=== PATIENT | female | born 1970 | race Caucasian/White ===

== ENCOUNTER → 2016-10-10 | Outpatient (CLI) | payer BC ==
--- NOTE | 2016-10-10 12:04 | KCIC ---
Bilateral digital screening mammograms with CAD: HISTORY Routine screening COMPARISON Comparison is made to previous examinations dated 09/09/2015 and 09/01/2014. FINDINGS Breast density category C. The skin and nipples show no abnormalities. No abnormal lymph nodes are seen in the axilla. The breast parenchyma shows heterogeneous density. There continue to be small circumscribed lesions in the left breast correspond to cysts seen on previous ultrasound. There are no new dominant masses, suspicious calcifications or architectural distortions. IMPRESSION No evidence of malignancy. Recommend routine annual mammographic screening. This study was interpreted with the benefit of Computerized Aided Detection (CAD). Mammography is not 100% sensitive in detecting breast cancer. Therefore, a self breast exam and a clinical breast exam are very important. A negative mammogram does not negate a clinically suspicious finding and should not result in a delay in biopsying a clinically suspicious abnormality. BI-RADS category 2: Benign. This patient's information has been entered into a reminder system for the patient to be notified with the results of this examination and a target date for her next mammograms. Electronically signed by: Vonnie Montemayor MD (Oct 10, 2016 12:02:06)
== END | disposition home or self-care (01) ==
LOC: KCIC MAMMO 08:09
PROVIDERS: ATTEND Obstetrics & Gynecology
DX: Z12.31 Encounter for screening mammogram for malignant neoplasm of breast (principal)
CPT/HCPCS: 77052; G0202; 77067

== ENCOUNTER 2017-03-29 07:55 | Observation (INO) | payer BC ==
[~2017-03-29] VITALS: Ht 160 cm; Wt 56.7 kg
[2017-03-29] VITALS (9 sets, daily range): BP systolic 98–130; BP diastolic 56–81
[~2017-03-29 07:55] MED LIST: HYDROmorphone 2 MG/ML VIAL IV PRN; IV RINGERS,LACTATED 1000ML 1,000 ML IV SCH; LIDOCAINE 1% 1 ML SYRINGE. ID PRN; MORPHINE SULFATE 2 MG/ML DISP.SYRIN. IV PRN; ONDANSETRON PF 4 MG/2 ML VIAL. IV PRN; PROCHLORPERAZINE 10 MG/2 ML VIAL. IV PRN; fentaNYL PF VIAL 100 MCG/2 ML VIAL IV PRN
[2017-03-29] MEDS ORDERED: ESTROGENS, CONJ VAGINAL CREAM 30GM TUBE. ONE (08:05)
[2017-03-29] MEDS ORDERED: BUPIVACAINE-EPI 0.25%-1:200000 MPF 30 ML VIAL. ONE (08:05)
[2017-03-29] MEDS ORDERED: ALPR0.254 PO (08:14)
[2017-03-29] MEDS ORDERED: PARO10TA57 PO (08:15)
[2017-03-29] MEDS ORDERED: OMEP20TA63 PO (08:15)
[2017-03-29] MEDS ORDERED: DICY20TA3 PO (08:16)
[2017-03-29 08:19] LABS: NEG OBC UR NEG; POS OBC UR POS
[2017-03-29] MEDS ORDERED: PROPOFOL 20 ML IV ONE (08:56)
[2017-03-29] MEDS ORDERED: LIDOCAINE 2% PF Vial for OR 5 ML VIAL. ONE (08:56)
[2017-03-29] MEDS ORDERED: MIDAZOLAM HCL/PF 2 MG/2 ML VIAL. ONE (08:56)
[2017-03-29] MEDS ORDERED: ROCURONIUM 50 MG/5 ML VIAL. ONE (08:56)
[2017-03-29] MEDS ORDERED: DEXAMETHASONE SOD PHOS 20 MG/5 ML VIAL. ONE (08:56)
[2017-03-29] MEDS ORDERED: ONDANSETRON PF 4 MG/2 ML VIAL. ONE (08:56)
[2017-03-29] MEDS ORDERED: fentaNYL PF VIAL 100 MCG/2 ML VIAL ONE (08:56)
[2017-03-29] MEDS ORDERED: KETOROLAC 60 MG/2 ML INJ FOR OR. ONE (10:34)
[2017-03-29] MEDS ORDERED: GLYCOPYRROLATE 1 MG/5 ML VIAL. ONE (10:34)
[2017-03-29] MEDS ORDERED: NEOSTIGMINE METHYLSULFATE 5 MG/5 ML SYRINGE. ONE (10:34)
[2017-03-29] MEDS ORDERED: SEVOFLURANE 61 TO 120 MINUTES. IH ONE (10:35)
[2017-03-29] MEDS ORDERED: PHENYLEPHRINE in 0.9% NACL PF 1 MG/10 ML DISP.SYRIN. IV ONE (10:35)
--- NOTE | 2017-03-29 10:59 | PDOC ---
BRIEF OPERATIVE NOTE Date: Mar 29, 2017 Pre-Op Diagnosis fibroids, menorrhagia, history of anemia Post-Op Diagnosis same Procedure Performed LAVH, bilateral salpingectomy Surgeon Dr. Zeina Isaacs Pediatric Physician Dr. Elvie Todd Anesthesiologist Dr. Kinney Anesthesia Type: General Blood Loss 75cc IV Fluid 1L Urine Output 150cc clear via weller Specimens Obtained cervix, uterus, bilateral tubes Findings enlarged RV uterus, normal bilateral tubes and ovaries, no significant pelvic adhesive disease Complications none Additional Remarks dictation line down ZEINA ISAACS MD Mar 29, 2017 10:59
[2017-03-29] MEDS ORDERED: diphenhydrAMINE HCL 25 MG CAPSULE PO PRN (11:00)
[2017-03-29] MEDS ORDERED: LACTULOSE 20 GM/30 ML SOLUTION. PO PRN (11:00)
[2017-03-29] MEDS ORDERED: ZOLPIDEM 5 MG TABLET. PO PRN (11:00)
[2017-03-29] MEDS ORDERED: CALCIUM CARBONATE 500 MG TAB.CHEW PO PRN (11:00)
[2017-03-29] MEDS ORDERED: HYDROcodone/APAP 5/325MG 1 TAB TABLET PO PRN (11:00)
[2017-03-29] MEDS ORDERED: diphenhydrAMINE 50 MG/ML VIAL IV PRN (11:00)
[2017-03-29] MEDS ORDERED: MAG HYDROX/ALUMINUM HYD/SIMETH 30 ML ORAL.SUSP PO PRN (11:00)
[2017-03-29] MEDS ORDERED: NALOXONE 0.4 MG/ML VIAL. IV PRN (11:00)
[2017-03-29] MEDS ORDERED: MAGNESIUM HYDROXIDE 2,400 MG/30 ML ORAL.SUSP. PO PRN (11:00)
[2017-03-29] MEDS ORDERED: MORPHINE SULFATE 2 MG/ML DISP.SYRIN. IV PRN (11:00)
[2017-03-29] MEDS ORDERED: 0.9 % SODIUM CHLORIDE 10 ML DISP.SYRIN. IV PRN (11:00)
[2017-03-29] MEDS ORDERED: ONDANSETRON PF 4 MG/2 ML VIAL. IV PRN (11:00)
[2017-03-29] MEDS: fentaNYL PF VIAL 100 MCG/2 ML VIAL IV PRN ×3 (11:25→12:02)
[2017-03-29] MEDS ORDERED: MEPERIDINE PF 25 MG/ML VIAL. IM PRN (12:30)
[2017-03-29] MEDS: KETOROLAC TROMETHAMINE 30 MG/ML INJ. IV PRN ×2 (13:38→21:49)
[2017-03-29] MEDS: oxyCODONE/APAP 5/325 1 TAB TABLET PO PRN (16:21)
[2017-03-29] MEDS ORDERED: SMZ/TMP 800/160MG TABLET. PO SCH (21:00)
[2017-03-29] MEDS: SIMETHICONE 80 MG TAB.CHEW PO PRN (21:49)
[2017-03-30 03:18] VITALS: BP 104/68
[2017-03-30] MEDS: oxyCODONE/APAP 5/325 1 TAB TABLET PO PRN ×3 (03:22→12:19)
[2017-03-30 05:09] LABS: CALCIUM 8.7 mg/dL (8.5-10.1); CREATININE 0.7 mg/dL (0.6-1.0); GFR 90.9; POTASSIUM 3.6 mmol/L (3.5-5.1)
[2017-03-30 08:00] VITALS: BP 110/72
--- NOTE | 2017-03-30 08:45 | PDOC ---
SURGICAL PROGRESS NOTE Subjective Doing well without complaints. Got sick last night but ok this am and tolerating breakfast. Voiding without catheter and wants to go home Vital Signs Vital Signs Date Time Temp Pulse Resp B/P (MAP) Pulse Ox O2 Delivery O2 Flow Rate FiO2 03/30/17 04:30 16 97 Room Air 03/30/17 03:22 96.0 03/30/17 03:18 99.1 80 104/68 (80) 99.1 I&O Intake and Output 03/30/17 07:00 Intake Total 3350 ml Output Total 1425 ml Balance 1925 ml Intake Oral 1000 ml IV Total 1350 ml Other 1000 ml Output Urine Total 1350 ml Estimated Blood Loss 75 ml PATIENT HAS A RODRÍGUEZ: No General: Alert, Oriented X3, Cooperative, No acute distress Heart: Regular rate Abdomen: Soft, No tenderness, Other (all port sites c/d/i) Extremities: No clubbing, No cyanosis, No edema Skin: No rashes, No breakdown Neuro: Normal speech Psych/Mental Status: Mental status NL, Mood NL Labs Laboratory Tests Test 03/29/17 08:00 03/30/17 04:25 Urine Test Negative (NEG) Hematocrit 31.6 % (36.0-47.0) Sodium Level 139 mmol/L (136-145) Potassium Level 3.6 mmol/L (3.5-5.1) Chloride Level 105 mmol/L (98-107) Carbon Dioxide Level 29 mmol/L (21-32) Anion Gap 5 (6-14) Blood Urea Nitrogen 5 mg/dL (7-20) Creatinine 0.7 mg/dL (0.6-1.0) Estimated GFR (Cockcroft-Gault) 90.9 Glucose Level 108 mg/dL (70-99) Calcium Level 8.7 mg/dL (8.5-10.1) Laboratory Tests Test 03/30/17 04:25 Hematocrit 31.6 % (36.0-47.0) Sodium Level 139 mmol/L (136-145) Potassium Level 3.6 mmol/L (3.5-5.1) Chloride Level 105 mmol/L (98-107) Carbon Dioxide Level 29 mmol/L (21-32) Anion Gap 5 (6-14) Blood Urea Nitrogen 5 mg/dL (7-20) Creatinine 0.7 mg/dL (0.6-1.0) Estimated GFR (Cockcroft-Gault) 90.9 Glucose Level 108 mg/dL (70-99) Calcium Level 8.7 mg/dL (8.5-10.1) I have reviewed the following labs, vitals, nursing Cardiovascular: No pertinent hx Pulmonary: No pertinent hx GI: No pertinent hx Heme/Onc: No pertinent hx Psych: No pertinent hx Rheumatologic: No pertinent hx Infectious disease: No pertinent hx ENT: No pertinent hx Assessment/Plan POD#1 s/p LAVH bilateral salpingectomy Routine PO care d/c to home later today NPV x 6 weeks light/limited activity x [address] while on narcotic pain pills keep scheduled follow up in one week pain pills already filled at home ok to take otc ibuprofen as well call or return sooner for any other questions or concerns not limited to but including pain unrelieved with pain pills, increased or unexplained vaginal bleeding, or T>100.4 Problems: RAHEL MEDLEY MD Mar 30, 2017 08:45
--- NOTE | 2017-03-30 08:57 | PDOC3 ---
Discharge Summary Visit Information Date of Admission: Mar 29, 2017 Date of Discharge: Mar 30, 2017 Admitting Diagnosis Comment: fibroids, menorrhagia Final Diagnosis same Brief Hospital Course Allergies Allergies Coded Allergies Type Severity Reaction Last Updated Verified Sulfa (Sulfonamide Antibiotics) Allergy Intermediate 03/29/17 No Vital Signs Vital Signs Date Time Temp Pulse Resp B/P (MAP) Pulse Ox O2 Delivery O2 Flow Rate FiO2 03/30/17 04:30 16 97 Room Air 03/30/17 03:22 96.0 03/30/17 03:18 99.1 80 104/68 (80) 99.1 Lab Results Laboratory Tests Test 03/29/17 08:00 03/30/17 04:25 Urine Test Negative (NEG) Hematocrit 31.6 % (36.0-47.0) Sodium Level 139 mmol/L (136-145) Potassium Level 3.6 mmol/L (3.5-5.1) Chloride Level 105 mmol/L (98-107) Carbon Dioxide Level 29 mmol/L (21-32) Anion Gap 5 (6-14) Blood Urea Nitrogen 5 mg/dL (7-20) Creatinine 0.7 mg/dL (0.6-1.0) Estimated GFR (Cockcroft-Gault) 90.9 Glucose Level 108 mg/dL (70-99) Calcium Level 8.7 mg/dL (8.5-10.1) Laboratory Tests Test 03/30/17 04:25 Hematocrit 31.6 % (36.0-47.0) Sodium Level 139 mmol/L (136-145) Potassium Level 3.6 mmol/L (3.5-5.1) Chloride Level 105 mmol/L (98-107) Carbon Dioxide Level 29 mmol/L (21-32) Anion Gap 5 (6-14) Blood Urea Nitrogen 5 mg/dL (7-20) Creatinine 0.7 mg/dL (0.6-1.0) Estimated GFR (Cockcroft-Gault) 90.9 Glucose Level 108 mg/dL (70-99) Calcium Level 8.7 mg/dL (8.5-10.1) Brief Hospital Course Ms. Charles is a 46 old female who presented with menorrhagia, fibroids and anemia. She underwent an LAVH with bilateral salpingectomy without complications yesterday. She has had an unremarkable postoperative course. She is voiding well without catheter, ambulating well and tolerating regular diet. She will be discharged home later today Discharge Information Condition at Discharge: Improved Follow Up: Weeks Disposition/Orders: D/C to Home Scheduled Alprazolam (Alprazolam), 1 TAB PO BID, (Reported) Dicyclomine Hcl (Dicyclomine Hcl), 1 TAB PO BID, (Reported) Omeprazole Magnesium (Prilosec Otc), 20 MG PO DAILY, (Reported) Paroxetine Hcl (Paxil), 5 MG PO DAILY, (Reported) Patient Instructions Patient Instructions POD#1 s/p LAVH bilateral salpingectomy Routine PO care d/c to home later today NPV x 6 weeks light/limited activity x [address] while on narcotic pain pills keep scheduled follow up in one week pain pills already filled at home ok to take otc ibuprofen as well call or return sooner for any other questions or concerns not limited to but including pain unrelieved with pain pills, increased or unexplained vaginal bleeding, or T>100.4 RAHEL MEDLEY MD Mar 30, 2017 08:56
[2017-03-30 09:45] VITALS: BP 112/72
[2017-03-30] MEDS: SIMETHICONE 80 MG TAB.CHEW PO PRN (09:48)
[2017-03-30 13:30] VITALS: BP 123/81
--- NOTE | 2017-04-02 08:41 | PATHOLOGY ---
PATHOLOGY REPORT * * * * * * * * FINAL DIAGNOSIS: Uterus and attached bilateral fallopian tubes, laparoscopic assisted vaginal hysterectomy with bilateral salpingectomy: - Leiomyoma, uterine corpus, submucosal and intramural, measuring 4.6 cm in greatest dimension and showing focal infarction and hyalinization (uterine weight 228 grams). - Chronic cervicitis with focal squamous metaplasia. - Nabothian cyst, cervix. - Slightly disordered proliferative endometrium. - Paratubal cysts, bilateral. COMMENT: There is no evidence of malignancy. (JPM/db; 03/31/2017) REPORT ELECTRONICALLY SIGNED BY: Alvarez Hale M.D. DATE/TIME: 04/02/2017 08:40 * * * * * * * * GROSS PATHOLOGY: The specimen is received in formalin labeled "Iqra Charles, uterus and cervix, bilateral tubes". Received is a 10.3 x 7.4 x 5.8 cm intact uterus with attached cervix and bilateral fallopian tubes that weighs 228.4g. The uterine serosa is pale yellow clayton and focally nodular. The 1.3 cm rounded cervical os is surrounded by pale yellow clayton, somewhat granular ectocervical mucosa. The uterus is oriented using the peritoneal reflection and the anterior paracervical margin is inked black. The uterus is opened laterally to reveal a yellow clayton, corrugated endocervical canal measuring 3.0 cm in length. The endometrial cavity is distorted by a large submucosal fibroid measuring 4.6 cm in diameter. The endometrial cavity measures approximately 5.5 cm in length by 3.5 cm in width. The endometrium is reddish clayton and granular in appearance and measures 0.3 in thickness. Serial sectioning reveals a pink clayton, soft, trabeculated myometrium measuring 2.0 cm in thickness. The fibroid has a polo to white, whorled, rubbery cut surface. The right fimbriated fallopian tube measures 5.3 cm in length by 0.6 cm in diameter. The serosal surface is inked black. There is a 0.8 clear, thin paratubal cyst. Sectioning reveals a pinpoint lumen and an unremarkable cut surface. The left fimbriated fallopian tube measures 6.7 cm in length by 0.7 cm in diameter. There is a 1.2 cm clear, thin paratubal cyst. Sectioning reveals a pinpoint lumen and an unremarkable cut surface. Rehabilitation Aide/Scheduler sections are submitted as follows: A1- Anterior and posterior cervix A2-A3- Anterior endomyometrium and submucosal fibroid A4- Posterior endomyometrium A5-A6- Rehabilitation Aide/Scheduler sections from large fibroid A7- Rehabilitation Aide/Scheduler sections from bilateral fallopian tubes, right tube differentially inked (JPM;l 03/29/17) INITIAL CPT CODE(S): A; 02039 Professional services [place] [facility] [place] [address] Technical services performed by [facility] at [address] [place] [address], [address], [place] [address]. SPECIMEN(S) RECEIVED: A.Uterus, cervix, bilateral fallopian tubes CLINICAL HISTORY: Iron deficiency anemia, fibroids, menorrhagia PATIENT: KELLYIQRA /AGE: 906/25/1970 (Age: 46) PATIENT #: [id number] ALT CASE #: SPECIMEN COLLECTION DATE: 03/29/2017 SPECIMEN RECEIVED DATE: 03/29/2017 [facility] - [address] [place] [address] - PHONE: [phone] * * * END OF REPORT * * *
--- NOTE | 2017-04-26 12:37 | OP ---
DATE OF SURGERY: 03/29/2017 The patient was admitted to undergo a laparoscopic-assisted vaginal hysterectomy, bilateral salpingo-oophorectomy. She underwent the aforementioned procedure without complications. SURGEON: Rahel Isaacs MD WANT AD RECEIVER: Elvie Todd MD ANESTHESIA: General. PROCEDURE: Laparoscopic-assisted vaginal hysterectomy, bilateral salpingectomy. FINDINGS: Mildly enlarged uterus, normal bilateral tubes, normal ovaries. COMPLICATIONS: None. DESCRIPTION OF THE PROCEDURE: The patient was taken to the operating room where general anesthesia was placed. The patient was placed in the dorsal lithotomy position in [facility]. The patient's abdomen and vagina were prepped and draped in the normal sterile fashion and a Burgos catheter was inserted under sterile technique. After performing a timeout, a bivalve speculum was placed in the patient's vagina. A single tooth tenaculum was used to grasp the anterior lip of the cervix. 10 mL of 0.25% Marcaine with epinephrine was used to circumferentially inject around the cervix. This was for both hemodissection and hemostatic purposes later. After this was done, the ShipEarly uterine manipulator was placed through the endocervical os, locked on the single tooth tenaculum and the bivalve speculum was then removed. Top gloves were discarded and changed. Attention was then turned to the abdomen where a small infraumbilical skin incision was made with the scalpel, carried down to the underlying layer to the fascia with a curved Abril clamp. The 5 mm Visiport was used to directly enter the abdominal cavity. Opening patient pressure was 3 mmHg. Carbon dioxide gas was used to then appropriately insufflate the abdominal cavity to maintain a pressure of 15 mmHg. The patient was placed in Trendelenburg position. Right and left lower quadrant ports were placed under direct visualization without difficulty, 5 mm Ethicon disposable ports. After transilluminating the abdomen and finding an area clear of any vasculature they were placed. At this point, the LigaSure Advance was used to cauterize and cut the left round ligament, creating a window in the mesosalpinx, going down and creating the bladder flap sharply, elevating the left tube again leaving the ovary, cauterizing the mesosalpinx area and then crossing the uterine ovarian pedicle leaving the ovary. This was done exactly the same on the patient's right side, first starting at the round ligament, cauterizing and cutting it with the LigaSure Advance, creating that window, going down and further meeting that bladder flap anteriorly. Again, elevating the right tube, crossing under the tube above the ovary in the mesosalpinx and then crossing the right uterine ovarian pedicle again leaving the ovary. Once this was done, the uterine vessels were obtained on both sides going down contralaterally and crossing and staying vertical and hugging the uterus through the cardinal and broad ligaments down to the uterosacrals, making sure the bladder was down the whole time. Once this was done, the uterus was blanched. All instruments were removed and attention was turned vaginally. The single tooth and Valtchev were removed. A weighted speculum was placed in the patient's vagina. Thyroid Rosalee clamps were placed on the anterior and posterior lips of the cervix respectively. A scalpel was used to make a circumferential incision in the cervix. An open Ray-Mark 4 x 4 was used to gently push up the anterior bladder peritoneum. The posterior cul-de-sac was sharply entered with the Joseph scissors. A #0 Vicryl stitch was used to secure the posterior peritoneum to the vaginal cuff here. The short weighted speculum was removed and replaced with the long weighted Sandra speculum. That posterior cuff tag was tagged with a curved Abril clamp and the needle was cut and passed off. Once this was done, curved Autumn x 2 were placed on the patient's left uterosacral ligament. They were doubly clamped with curved Autumn's, cut with the Joseph scissors and suture ligated x 2 with #0 Vicryl. The second one was taken through the vaginal cuff securing the uterosacral ligaments of the vaginal cuff, tying it and tagging it with a straight Abril clamp and passing the needle off. This was done exactly the same on the patient's right side, first starting on the left then the right. Double clamping the right uterosacrals with curved Heaneys, cutting with Joseph scissors and suture ligating x 2 with #0 Vicryl, again taking the second one through the vaginal cuff and tagging it with a straight Abril clamp. The remainder of the pedicle was delineated with a curved right angle clamp and the vaginal LigaSure Max was used to cauterize the remaining pedicles on both sides. Once it was free, the cervix, uterus, bilateral tubes were passed off for permanent pathology. A sponge stick was used to examine the pedicles. The Ray-Mark was taken out of the anterior cul-de-sac and the anterior bladder peritoneum was grasped with a long Allis. 2-0 Vicryl was taken through the anterior bladder peritoneum, right uterosacral ligament, posterior peritoneum and left uterosacral ligament, thus closing the peritoneum in a pursestring like fashion. The long weighted Sandra was taken out on that step and replaced with a short weighted vaginal speculum. The cuff was closed in an anterior to posterior running locked fashion with 2-0 Vicryl. Once this was done and it was hemostatic, all instruments were removed from the vagina and all gloves were discarded and changed. Attention was turned back above for a second look where she was irrigated and Tisseel was placed over the cuff with excellent results and hemostasis. The right and left lower quadrant ports were removed under direct visualization, these too were hemostatic. Gas was released from the umbilical port. All three port sites were closed with 4-0 nylon at the level of the skin and injected with a total of 10 mL of 0.25% Marcaine with epinephrine. RAHEL ISAACS MD DR: EMIL/apoorva JOB#: [id number] / [id number]
== END 2017-03-30 13:35 | disposition home or self-care (01) ==
LOC: SURG 07:55 → 3 NORTH 11:15
PROVIDERS: ADMIT Obstetrics & Gynecology; ATTEND Obstetrics & Gynecology
DX: N92.0 Excessive and frequent menstruation with regular cycle (principal); D25.9 Leiomyoma of uterus, unspecified; D64.9 Anemia, unspecified
CPT/HCPCS: 36415; 58552; 80048; 81025; 85014; 86850; 86900; 86901; 88307; 96374; 96375; 96376; C1769; G0378; G0379; J0690; J1100; J1885; J2001; J2250; J2370; J2405; J2704; J2710; J3010; J3490; J7030; J7120; J0780

== ENCOUNTER → 2017-10-23 | Outpatient (CLI) | payer BC | END | disposition home or self-care (01) | LOC: KCIC MAMMO 08:05 | DX: Z12.31 Encounter for screening mammogram for malignant neoplasm of breast (principal) | CPT/HCPCS: 77063; 77067 ==

== ENCOUNTER → 2017-10-29 | Outpatient (CLI) | payer BC | END | disposition home or self-care (01) | LOC: KCIC US 12:52 | DX: N63.20 Unspecified lump in the left breast, unspecified quadrant (principal) | CPT/HCPCS: 76641 ==

== ENCOUNTER → 2018-10-29 | Outpatient (CLI) | payer BC ==
[~2018-10-29] MED LIST changes: +ALPR0.254 PO; +DICY20TA3 PO; -HYDROmorphone 2 MG/ML VIAL IV PRN; -IV RINGERS,LACTATED 1000ML 1,000 ML IV SCH; -LIDOCAINE 1% 1 ML SYRINGE. ID PRN; -MORPHINE SULFATE 2 MG/ML DISP.SYRIN. IV PRN; +OMEP20TA63 PO; -ONDANSETRON PF 4 MG/2 ML VIAL. IV PRN; +PARO10TA57 PO; -PROCHLORPERAZINE 10 MG/2 ML VIAL. IV PRN; -fentaNYL PF VIAL 100 MCG/2 ML VIAL IV PRN
--- NOTE | 2018-10-29 13:18 | KCIC ---
Bilateral digital screening mammograms with 3-D tomosynthesis: Reason for examination: Routine screening. Comparison is made to previous studies dated 10/23/2017 and 10/10/2016. Bilateral mammograms in CC and oblique projections were obtained with 2-D imaging and 3-D tomosynthesis imaging on a Siemens Inspiration unit and reviewed on the workstation. Interpretation was made with the benefit of CAD. The skin and nipples show no abnormalities. No abnormal axillary lymph nodes are seen. The breast parenchyma is heterogeneously dense. (Breast density: Category C.) There are multiple circumscribed lesions bilaterally consistent with patient's history of cysts. The largest lesion in the right breast posterior laterally has decreased in size. There has been increase in size in the lesions at the 2:00 B position and 8:00 B positions of the left breast. There are no suspicious calcifications or architectural distortion. Impression: Continued presence of multiple circumscribed lesions bilaterally consistent with patient's history of cysts with some improvement in the cysts in the right breast but enlarging cysts in the left breast. Your patient's mammogram demonstrates that she has dense breast tissue (breast density category C or D), which could hide abnormalities, and if she has other risk factors for breast cancer that have been identified, she might benefit from supplemental screening tests that may be suggested by you as her ordering physician. Dense breast tissue, in and of itself, is a relatively common condition. Therefore, this information is not provided to cause undue concern, but rather to raise your awareness and to promote discussion with your patient regarding the presence of other risk factors, in addition to dense breast tissue. Your patient's mammography results will be sent to her. BI-RAD Category 2: Benign. "Our facility is accredited by the [employer] Mammography Program." This patient's information has been entered into a reminder system for the patient to be notified with the results of her examination and a target date for the next mammogram. Electronically signed by: Whit Montemayor MD (10/29/2018 1:13 PM) [id number]
== END | disposition home or self-care (01) ==
LOC: KCIC MAMMO 08:19
PROVIDERS: ATTEND Obstetrics & Gynecology
DX: Z12.31 Encounter for screening mammogram for malignant neoplasm of breast (principal)
CPT/HCPCS: 77063; 77067

== ENCOUNTER → 2019-11-03 | Outpatient (CLI) | payer OTHER ==
--- NOTE | 2019-11-03 16:55 | KCIC ---
Bilateral digital screening mammograms with 3-D tomosynthesis: Reason for examination: Routine screening. Comparison is made to previous studies dated back to 10/10/2016. Bilateral mammograms in CC and oblique projections were obtained with 2-D imaging and 3-D tomosynthesis imaging on a Siemens Inspiration unit and reviewed on the workstation. Interpretation was made with the benefit of CAD. The skin and nipples show no abnormalities. No abnormal axillary lymph nodes are seen. The breast parenchyma is heterogeneously dense. (Breast density: Category C.) There continue to be small circumscribed lesions bilaterally which probably represent cysts in this patient with history of cysts. There is one nodular density however at the posterior central left breast on cc view probably at the 6:00 C position which is denser than the others. This likely represents a cyst but recommend further evaluation with ultrasound. Impression: Continued presence of circumscribed lesions consistent with patient's history of cysts. There is one lesion present posterior centrally in the left breast on cc view probably at the 6:00 C position which appears to be denser than the others. Recommend further evaluation with ultrasound. Your patient's mammogram demonstrates that she has dense breast tissue (breast density category C or D), which could hide abnormalities, and if she has other risk factors for breast cancer that have been identified, she might benefit from supplemental screening tests that may be suggested by you as her ordering physician. Dense breast tissue, in and of itself, is a relatively common condition. Therefore, this information is not provided to cause undue concern, but rather to raise your awareness and to promote discussion with your patient regarding the presence of other risk factors, in addition to dense breast tissue. Your patient's mammography results will be sent to her. BI-RAD Category 0: Incomplete. Needs additional imaging evaluation. "Our facility is accredited by the [employer] Mammography [employer]." This patient's information has been entered into a reminder system for the patient to be notified with the results of her examination and a target date for the next mammogram. Electronically signed by: Whit Montemayor MD (11/03/2019 4:52 PM) [email or web address]
== END | disposition home or self-care (01) ==
LOC: KCIC MAMMO 15:53
PROVIDERS: ATTEND Obstetrics & Gynecology
DX: Z12.31 Encounter for screening mammogram for malignant neoplasm of breast (principal); N64.89 Other specified disorders of breast
CPT/HCPCS: 77063; 77067

== ENCOUNTER → 2019-11-07 | Outpatient (CLI) | payer OTHER ==
--- NOTE | 2019-11-07 16:19 | KCIC ---
Left breast ultrasound: Reason for examination: Nodular density on screening mammogram. Comparison is made to mammographic exam dated 11/03/2019. Ultrasound examination of the left breast and axilla was performed. In the 6:00 position 3 cm from the nipple and corresponding to the area of mammographic concern, there is an anechoic circumscribed lesion consistent with a cyst measuring 1 cm in greatest dimension. There are also a couple of small fibrocystic type lesions measuring 3.4 and 4.3 mm in size at the 4:00 position 6 cm from the nipple. No suspicious-appearing nodules are seen. No abnormal appearing lymph nodes are seen in the axilla. IMPRESSION: 1 cm cyst appears to corresponding with the area of mammographic concern at the 6:00 position. Additional small fibrocystic type lesions at 4:00 position. Recommend 6 month follow-up with ultrasound. BI-RADS Category 3: Probably Benign. "Our facility is accredited by the [employer] Mammography Program." This patient's information has been entered into a reminder system for the patient to be notified with the results of her examination and a target date for the next mammogram. Electronically signed by: Whit Montemayor MD (11/07/2019 4:16 PM) [email or web address]
== END | disposition home or self-care (01) ==
LOC: KCIC US 07:48
PROVIDERS: ATTEND Obstetrics & Gynecology
DX: N60.12 Diffuse cystic mastopathy of left breast (principal)
CPT/HCPCS: 76641

== ENCOUNTER → 2020-05-18 | Outpatient (CLI) | payer OTHER ==
--- NOTE | 2020-05-18 10:02 | KCIC ---
Left breast ultrasound: Reason for examination: Follow-up nodules. Comparison is made to previous study dated 11/07/2019. Left breast ultrasound including evaluation of the retroareolar and axillary regions of the left breast was performed. There continue to be benign-appearing fibrocystic lesions at the 4:00 position 6 cm from the nipple measuring 3.4 mm in size, at the 6:00 position 3 cm from the nipple measuring 7.2 mm in size and at the 3:00 position 3 cm from the nipple measuring 4.1 mm in greatest dimension. These have shown interval decrease in size. No suspicious nodules are seen. No abnormal appearing lymph nodes are seen in the axilla. IMPRESSION: Continued presence of benign fibrocystic type lesions in the left breast which have shown interval decrease in size. Recommend routine mammographic follow-up. BI-RADS Category 2: Benign. "Our facility is accredited by the [employer] Mammography Program." This patient's information has been entered into a reminder system for the patient to be notified with the results of her examination and a target date for the next mammogram. Electronically signed by: Whit Montemayor MD (05/18/2020 9:59 AM) [email or web address]
== END | disposition home or self-care (01) ==
LOC: KCIC US 07:52
PROVIDERS: ATTEND Obstetrics & Gynecology
DX: R92.8 Other abnormal and inconclusive findings on diagnostic imaging of breast (principal); N63.23 Unspecified lump in the left breast, lower outer quadrant
CPT/HCPCS: 76641

== ENCOUNTER → 2020-11-30 | Outpatient (CLI) | payer OTHER ==
--- NOTE | 2020-11-30 16:38 | KCIC ---
Bilateral diagnostic digital mammograms with 3-D tomosynthesis: Reason for examination: Left breast lump with pain for one month. Comparison is made to previous studies dated back to 10/10/2016. Bilateral mammograms in CC and oblique projections were obtained with 2-D imaging and 3-D tomosynthes is imaging on a Siemens Inspiration unit and reviewed on the workstation. Interpretation was made wit h the benefit of CAD. The skin and nipples show no abnormalities. No abnormal axillary lymph nodes are seen. The breast par enchyma is heterogeneously dense. (Breast density: Category C.) There continue to be small nodular pa renchymal densities in the right breast which appear to be stable. In the left breast, there are smal l nodules at the 12:00 C and 1:00 B positions which are new. There are also small nodules in the left breast at the subareolar 12:00 position and at the 9:00 B position which are stable. In the area of clinical concern inferiorly, there appears to be a small crescent of nodularity seen posterior medial ly on cc view but no definite abnormality seen on oblique projection. No suspicious appearing calcifi cations are seen. Impression: Stable nodule were densities in the right breast. New nodules at the 12:00 C and 1:00 B positions of the left breast. Small crescent of density seen on cc view posterior medially in the area of clinical concern. Ultrasound to follow. Your patient's mammogram demonstrates that she has dense breast tissue (breast density category C or D), which could hide abnormalities, and if she has other risk factors for breast cancer that have bee n identified, she might benefit from supplemental screening tests that may be suggested by you as her ordering physician. Dense breast tissue, in and of itself, is a relatively common condition. Therefo re, this information is not provided to cause undue concern, but rather to raise your awareness and t o promote discussion with your patient regarding the presence of other risk factors, in addition to d ense breast tissue. Your patient's mammography results will be sent to her. BI-RAD Category 0: Incomplete. Needs additional imaging evaluation. Left breast ultrasound: Left whole breast ultrasound including evaluation of all 4 quadrants and the retroareolar and axillar y regions of the left breast was performed. In the area of clinical concern and at the 6:00 position 7 cm from the nipple, there is a 1.3 x 1 cm hypoechoic lesion with surrounding vascular flow and also showing tract to the skin surface. The appe arance would be consistent with a sebaceous cyst. At the 1:00 position 3 cm from the nipple, there is a hypoechoic circumscribed lesion in parallel orientation measuring 7 mm in size probably representi ng a complicated cyst. In the 12:00 position 4 cm from the nipple, there is a 2 x 1.8 cm simple cyst. No suspicious nodules are seen. No abnormal appearing lymph nodes are seen in the left axilla. IMPRESSION: Benign-appearing cystic lesions at the 1:00 and 12:00 positions. 1.3 x 1 cm hypoechoic lesion with a skin tract consistent with a sebaceous cyst at the 6:00 position 7 cm from the nipple and correspondi ng to the area of clinical concern. Recommend clinical follow-up as well as 6 month follow-up with pancho roper. BI-RADS Category 3: Probably Benign. "Our facility is accredited by the [employer] Mammography [employer]." This patient's information has been entered into a reminder system for the patient to be notified wit h the results of her examination and a target date for the next mammogram. Electronically signed by: Whit Montemayor MD (11/30/2020 4:36 PM) [facility]
== END ==
LOC: KCIC MAMMO 12:38
PROVIDERS: ATTEND Obstetrics & Gynecology
DX: N63.21 Unspecified lump in the left breast, upper outer quadrant (principal)
CPT/HCPCS: 76641; 77066; G0279; 77062

== ENCOUNTER → 2021-06-08 | Outpatient (CLI) | payer OTHER ==
--- NOTE | 2021-06-08 08:36 | KCIC ---
Procedure: TARGETED LEFT BREAST ULTRASOUND INDICATION: Follow-up of probably benign masses in the left breast. The patient had a sebaceous cyst o'clock position which has resolved. COMPARISON: Left breast ultrasound and mammogram from 11/30/2020. FINDINGS: Limited ultrasound was performed the previous areas of concern in the left breast. The left axilla wa s also evaluated. In the 12:00 position, 4 cm from the nipple, there is 0.7 cm cyst. It has decreased in size since the previous ultrasound. In the 1:00 position, 3 cm from the nipple, there is a 1.0 cm cyst with a few l ow-level internal echoes consistent with debris. It has increased slightly prior which time when it m easured 0.7 cm. The previously noted mass just deep to the skin in the 6:00 position, 7 cm from the n ipple, has resolved. There is no axillary adenopathy. IMPRESSION: Previously noted cyst in the 12:00 position of the left breast has decreased in size. Pre viously noted cyst in the 1:00 position left breast slightly larger. The sebaceous cyst noted in the 6:00 position of the left breast has resolved. ASSESSMENT: BI-RADS 2. Benign findings. RECOMMENDATION: Routine screening mammogram in November 2021. Electronically signed by: Helen Hurley MD (06/08/2021 8:34 AM) [email or web address]
== END ==
LOC: KCIC US 07:50
PROVIDERS: ATTEND Family Medicine
DX: N60.02 Solitary cyst of left breast (principal); N60.01 Solitary cyst of right breast
CPT/HCPCS: 76641

== ENCOUNTER → 2022-01-04 | Outpatient (CLI) | payer OTHER ==
[~2022-01-04] MED LIST changes: +DICY20TA PO; -DICY20TA3 PO
--- NOTE | 2022-01-04 12:18 | KCIC ---
Bilateral digital screening mammograms with 3-D tomosynthesis: Reason for examination: Routine screening. Comparison is made to previous studies dated back to 10/10/2016. Bilateral mammograms in CC and oblique projections were obtained with 2-D imaging and 3-D tomosynthes is imaging on a Siemens Inspiration unit and reviewed on the workstation. Interpretation was made cal moeller the benefit of CAD. The skin and nipples show no abnormalities. No abnormal axillary lymph nodes are seen. The breast par enchyma is extremely dense. (Breast density: Category D.) There continue to be small circumscribed no dules bilaterally. There are however new or enlarging nodules seen bilaterally. These may represent c ysts but further evaluation with ultrasound is recommended. There are no suspicious calcifications id entified. IMPRESSION: New and/or enlarging nodules seen bilaterally. Recommend further evaluation with bilateral breast ult rasound. Your patient's mammogram demonstrates that she has dense breast tissue (breast density category C or D), which could hide abnormalities, and if she has other risk factors for breast cancer that have bee n identified, she might benefit from supplemental screening tests that may be suggested by you as her ordering physician. Dense breast tissue, in and of itself, is a relatively common condition. Therefo re, this information is not provided to cause undue concern, but rather to raise your awareness and t o promote discussion with your patient regarding the presence of other risk factors, in addition to d ense breast tissue. Your patient's mammography results will be sent to her. BI-RAD Category 0: Incomplete. Needs additional imaging evaluation. "Our facility is accredited by the [employer] Mammography [employer]." This patient's information has been entered into a reminder system for the patient to be notified wit sajan the results of her examination and a target date for the next mammogram. Electronically signed by: Whit Montemayor MD (01/04/2022 12:15 PM) [email or web address]
== END ==
LOC: KCIC MAMMO 08:08
PROVIDERS: ATTEND Obstetrics & Gynecology
DX: Z12.31 Encounter for screening mammogram for malignant neoplasm of breast (principal)
CPT/HCPCS: 77063; 77067

== ENCOUNTER → 2022-01-24 | Outpatient (CLI) | payer OTHER ==
--- NOTE | 2022-01-24 09:57 | KCIC ---
EXAM: Bilateral breast sonogram. HISTORY: 51-year-old female presents for evaluation of nodularity within both breasts demonstrated on a mammogram dated 01/04/2022. TECHNIQUE: Sonographic imaging of both breasts including all 4 quadrants and the retroareolar regions was performed. COMPARISON: Mammogram dated 01/04/2022 and sonograms dated 06/08/2021, 11/30/2020, 05/18/2020, 11/07/2019. FINDINGS: Sonographic imaging of the right breast demonstrates a 3 mm simple cyst at the 12:00 positi on. There is a 1.4 cm benign cluster of cysts at the 2:30 position 4.5 cm from the nipple. There is a 6 mm uncomplicated cyst or cluster of cysts at the 8:00 position 3 cm from the nipple. There is a 1. 3 cm cluster of cysts at the 10:00 position 4 cm from the nipple. There is a 6 mm complicated cyst at the 11:00 position 5 cm from the nipple. There is a focally dilated duct within the subareolar aspec t of the right breast. There are benign axillary lymph nodes. No lesion with suspicious internal bloo d flow or posterior shadowing is seen. Sonographic imaging of the left breast demonstrates a stable 7 mm cyst at the 12:00 position 4 cm fro m the nipple. There is a similar-appearing cyst measuring 8 mm at the 12:00 position 3 cm from the ni pple. There is a 1.1 cm cluster of cysts at the 1:00 position 3 cm from the nipple. There is a 1.0 cm cyst at the 1:00 position 3 cm from the nipple. There is a 10 mm cluster of cysts or complicated cys t at the 10:00 position 2 cm from the nipple. There are benign axillary lymph nodes. No lesion with s uspicious internal blood flow or posterior shadowing is seen. IMPRESSION: 1. Multiple benign simple and complicated cysts and clusters of cysts, described in detail above. The se correspond with areas of mammographic nodularity. No suspicious sonographic lesion is seen. 2. BI-RADS Category 2: Benign finding(s). Annual mammography is recommended. Electronically signed by: Ximena Stallworth MD (01/24/2022 9:55 AM) [email or web address]
== END ==
LOC: KCIC US 08:27
PROVIDERS: ATTEND Nurse Practitioner Family
DX: N60.01 Solitary cyst of right breast (principal); N60.02 Solitary cyst of left breast; N63.10 Unspecified lump in the right breast, unspecified quadrant; N63.20 Unspecified lump in the left breast, unspecified quadrant
CPT/HCPCS: 76641